=== PATIENT | female | born 1995 | race Caucasian/White ===

== ENCOUNTER → 2017-06-08 | Outpatient (REF) | LOC: WSOH 09:49 → WSPT 11:15 | DX: Z02.89 Encounter for other administrative examinations (principal) ==

== ENCOUNTER → 2017-06-11 | Outpatient (REF) | LOC: WSOH 11:06 | DX: Z23 Encounter for immunization (principal) ==

== ENCOUNTER → 2017-06-11 | Outpatient (REF) | LOC: WSOH 11:40 | DX: Z02.89 Encounter for other administrative examinations (principal) ==

== ENCOUNTER 2017-06-18 14:40 | Outpatient (RCR) | payer OTHER | END 2017-07-24 14:07 | disposition still patient (30) | LOC: WSOH 14:40 | DX: M25.522 Pain in left elbow (principal) ==